=== PATIENT | male | born 1980 | race American Indian/Alaskan Native ===

== ENCOUNTER 2016-07-07 08:09 | Day surgery (SDC) | payer BC ==
[2016-07-07] MEDS ORDERED: NACL 0.9% 500 ML 500 ML ONE (08:21)
[2016-07-07] MEDS ORDERED: ECOTRIN PO ONE ×2 (08:22→10:00)
[2016-07-07] MEDS ORDERED: HEPARIN/NS 5000 UNIT/500ML(CATH LAB) 1,000 ML IR ONE (09:37)
[2016-07-07] MEDS ORDERED: NITROGLYCERIN SYRINGE 0 ML ONE (09:38)
[2016-07-07] MEDS ORDERED: CALAN ONE (09:38)
[2016-07-07] MEDS ORDERED: HEPARIN 10,000 UNITS/10 ML ONE (09:38)
[2016-07-07] MEDS ORDERED: XYLOCAINE 2% INFILTRATI ONE (09:38)
[2016-07-07] MEDS ORDERED: VERSED ONE (09:45)
[2016-07-07] MEDS ORDERED: SUBLIMAZE ONE (09:45)
[2016-07-07] MEDS ORDERED: NACL 0.9% 500 ML 500 ML IV SCH (10:00)
--- NOTE | 2016-07-07 12:57 | Cardiac Catherization Report ---
INDICATIONS FOR PROCEDURE: A 35-year-old -Citizen Of [place] gentleman with history of lung cancer and status post lobectomy in the past. He is being evaluated in the office for recurrent precordial chest pain. Underwent an echocardiogram, which showed moderate LVH and normal LV systolic function and stress EKG was nondiagnostic due to baseline EKG abnormalities. However, nuclear imaging suggested mild ischemia, hence scheduled for cardiac catheterization for definitive diagnosis and treatment. The patient is aware of the procedure, potential complications and alternatives of therapy available. Stress nuclear imaging showed he exercised for 10 minutes and 35 seconds and attained 13 METS. Attained a heart rate of 150 beats per minute, which is 82% of predicted maximal heart rate. Resting blood pressure was 157/97 and peak blood pressure was 244/80. Nuclear imaging showed a small reversible inferolateral defect and mild global left ventricular systolic dysfunction with inferior wall hypokinesis. Ejection fraction 49%. Considering mild reversible ischemia in the left circumflex coronary artery anatomy, the patient is scheduled for cardiac catheterization for definitive diagnosis and treatment. The patient is aware of the procedure, potential complications and alternatives of therapy available. DESCRIPTION OF PROCEDURE: The patient was brought to the catheterization laboratory in a fasting condition. The right wrist area and forearm thoroughly cleansed with Betadine solution and sterile drapes were applied. Local anesthesia was achieved using 2% Xylocaine. Right radial artery puncture was made using 21-gauge arterial puncture needle. Subsequently, a 6-[place]ic sheath was introduced. The patient received 3000 units of intravenous heparin and 5 mg of intra-arterial verapamil. The patient was sedated with IV Versed and fentanyl. Using 5-Green[place]ic multipurpose catheter, left ventriculogram was performed in OBANDO projection using hand injection followed by left coronary angiography in multiple views and also right coronary angiograms in multiple views using the multipurpose catheter. At the end of the procedure, catheter and sheath were removed. Good hemostasis was achieved with pressure bandage. No untoward complications were noted. The patient tolerated the procedure well. Following findings were noted. HEMODYNAMICS: 1. Opening aortic pressure 144/84, left ventricular pressure 159/18. No gradient across the aortic valve. Estimated ejection fraction 65%. 2. Left ventriculogram done in OBANDO projection using hand injection showed normal sized left ventricle with normal contractility. Mitral regurgitation could not be evaluated because of limited amount of dye injected. Overall, left ventricular systolic function is normal. 3. Right coronary artery, dominant vessel is angiographically smooth and normal. 4. Left coronary artery arises normally from left coronary cusp. Left main is very short, immediately dividing into LAD and circumflex branches. LAD curving around the apex. LAD and its branches, circumflex artery and its branches are angiographically smooth and normal. Right coronary artery dominant vessel is angiographically smooth and normal. FINAL IMPRESSION: 1. Normal sized left ventricle with normal contractility. End-diastolic pressure of upper limits of normal around 18 mmHg. 2. Normal coronary anatomy. 3. Right radial artery was used for access. Procedure was uncomplicated. Findings were explained to the patient. He understands. The patient will be monitored for next few hours and will be discharged home to be followed as an outpatient. JOB# [id number] JAREK/MICHAEL PINA
[2016-07-07 13:57] VITALS: BP 152/96
[2016-07-07] MEDS ORDERED: LOPRESSOR PO SCH (14:20)
--- NOTE | 2016-07-08 12:25 | Short Stay Summary ---
Short Stay Documentation Date of service: 07/07/16 - History H&P: obtained from office - Allergies and Medications Current Medications: Allergies No Known Allergies Allergy (Unverified 07/07/16 08:10) Home Medications Medication Instructions Recorded Confirmed Last Taken Type Metoprolol [Lopressor TAB] 50 mg PO BID #60 tablet 07/07/16 Unknown Rx - Brief post op/procedure progress note Date of procedure: 07/07/16 Pre-op diagnosis: abnormal stress test Post-op diagnosis: same Procedure: LHC - please see dictated cath report - Hospital course Hospital course: Pt is a 35 YO male with a past medical history significant for HTN, lung CA s/p lobectomy, LVH, chest pain, and abnormal stress test. He presented for scheduled elective LHC and subsequently underwent LHC via right radial artery per Dr. Walls which revealed normal coronaries. He remained clinically and hemodynamically stable throughout the procedure and recovery and was discharged home following the completion of his post-cath order set. - Disposition Disposition: DISCHARGED TO HOME OR SELFCARE - Discharge Diagnoses (1) HTN (hypertension) Status: Chronic Qualifiers: Hypertension type: H (2) Abnormal stress test Status: Chronic (3) History of lung cancer Status: Chronic (4) Chest pain Status: Chronic Qualifiers: Chest pain type: C Ischemic chest pain type: I Short Stay Discharge Plan Activity: advance as tolerated Diet: low salt Wound: open to air, keep clean and dry Follow up with: NAREN LOPEZ MD [Primary Care Provider] - 7 Days SLICK OREILLY MD [Staff Physician] - 7 Days Forms: CardCath PCI D/C Instructions, Work/School Excuse Out Patient Prescriptions: Metoprolol [Lopressor TAB] 50 mg PO BID #60 tablet
== END 2016-07-07 14:25 | disposition home or self-care (01) ==
LOC: OPU 08:09
PROVIDERS: ATTEND Internal Medicine
DX: R94.39 Abnormal result of other cardiovascular function study (principal); I10 Essential (primary) hypertension; Z85.118 Personal history of other malignant neoplasm of bronchus and lung; Z98.890 Other specified postprocedural states; Z72.89 Other problems related to lifestyle; Z82.49 Family history of ischemic heart disease and other diseases of the circulatory system; Z83.2 Family history of diseases of the blood and blood-forming organs and certain disorders involving the immune mechanism
CPT/HCPCS: 93005; 93010; 93458; C1894; J1644; J2250; J3010; J7040; Q9967